=== PATIENT | female | born 1975 | race Caucasian/White ===

== ENCOUNTER 2021-02-20 10:17 | Emergency (ER) | payer BC ==
[~2021-02-20] VITALS: Ht 170.2 cm; Wt 72.6 kg
[2021-02-20 10:33] VITALS: BP 101/69
--- NOTE | 2021-02-20 10:53 | NUR ---
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
--- NOTE | 2021-02-20 11:23 | NUR ---
Patient discharged to home in stable condition. Written and verbal after care instructions given. Patient verbalizes understanding of instruction.
== END 2021-02-20 11:23 | disposition home or self-care (01) ==
LOC: ER 10:17
DX: S93.492A Sprain of other ligament of left ankle, initial encounter (principal); X50.1XXA Overexertion from prolonged static or awkward postures, initial encounter; Y93.89 Activity, other specified; Y92.89 Other specified places as the place of occurrence of the external cause; Y99.8 Other external cause status
CPT/HCPCS: 73610-TC

== ENCOUNTER 2021-06-26 13:25 | Emergency (ER) | payer BC ==
[~2021-06-26] VITALS: Ht 170.2 cm; Wt 72.6 kg
[2021-06-26 13:25] VITALS: BP 125/85
--- NOTE | 2021-06-26 15:56 | NUR ---
Patient discharged to home in stable condition. Written and verbal after care instructions given. Patient verbalizes understanding of instruction.
== END 2021-06-26 15:56 | disposition home or self-care (01) ==
LOC: ER 13:30
DX: S83.8X2A Sprain of other specified parts of left knee, initial encounter (principal); Z98.890 Other specified postprocedural states; X50.1XXA Overexertion from prolonged static or awkward postures, initial encounter; Y93.89 Activity, other specified; Y92.89 Other specified places as the place of occurrence of the external cause; Y99.8 Other external cause status
CPT/HCPCS: 73564-TC